=== PATIENT | male | born 1960 | race Caucasian/White ===

== ENCOUNTER → 2016-07-01 | Outpatient (CLI) | payer BC, OTHER ==
--- NOTE | 2016-07-02 16:44 | SLEEPCENT ---
DATE OF PROCEDURE: 07/01/2016 REQUESTING PROVIDER: Padmini Kent NP INTERPRETATION: Nocturnal polysomnography was performed for retitration of pressure therapy of pressure therapy in this patient with obstructive sleep apnea syndrome. For testing, a Resmed Mirage Quattro full face mask of medium size was used. Initial bilevel pressure of 18/expiratory of 14 was applied to the circuit and the lights were extinguished. 7 hours and 24 minutes of data were reviewed. There were 404 minutes of sleep identified. Sleep latency was short at 4 minutes. Rapid eye movement (REM) latency was normal at 94 minutes. Sleep architecture was good with five REM periods. Overall sleep efficiency was 93%. The patient's electrocardiogram (EKG) showed a sinus rhythm with occasional ventricular ectopy. Average heart rate 60 beats per minute. EEG showed normal waveforms for awake and sleep. Best sleep was achieved with a bilevel pressure of 21/expiratory of 17. The occurrence of central apneas emerged mid portion of the study requiring the addition of a backup rate. A backup rate of 8 was sufficient to address the central apneas seen. IMPRESSION: 1. Complex obstructive sleep apnea syndrome (G47.31, G47.33). RECOMMENDATIONS: Nightly use of bilevel pressure therapy inspiratory 21/expiratory 17 with a backup rate of 8 will be necessary to address this patient's respiratory sleep disruption.
== END ==
LOC: M SLEEP 19:51
PROVIDERS: ATTEND Nurse Practitioner Adult Health
DX: G47.33 Obstructive sleep apnea (adult) (pediatric) (principal)